=== PATIENT | male | born 1940 | race Caucasian/White ===

== ENCOUNTER 2021-05-01 14:38 | Inpatient (IN) ==
[2021-05-01] MEDS ORDERED: 0.9 % Sodium Chloride 1,000 ML IVC ONE (15:08)
[2021-05-01 15:51] LABS: Basophils % 0.2 %; Eosinophils % 0.4 %; Hematocrit 42.7 % (37.5-50.1); Hemoglobin 13.5 g/dL (12.9-16.9); Immature Granulocytes % 0.2 % (0-4); Lymphocytes # 0.8 K/mcL (0.6-4.6); Lymphocytes % 13.9 %; Mean Corpuscular HGB Conc 31.6 g/dL (31.6-35.5); Mean Corpuscular Hemoglobin 27.7 pg (28.0-33.3); Mean Corpuscular Volume 87.5 fL (83.0-100.0); Mean Platelet Volume 11.4 fL (9.4-12.4); Monocytes # 0.2 K/mcL (0.0-1.3); Neutrophils # 4.4 K/mcL (1.6-8.9); Platelet Count 174 K/mcL (140-400); Red Blood Count 4.88 M/mcL (4.19-5.50); Red Cell Distribution Width 16.4 % (11.5-14.5); Segmented Neutrophils % 81.3 %; White Blood Count 5.5 K/mcL (4.3-11.1)
[2021-05-01 16:10] LABS: Potassium 5.9 mEq/L (3.5-5.1)
[2021-05-01 16:58] LABS: Troponin I < 0.03 ng/mL (< 0.04)
[2021-05-01 17:02] LABS: Alanine Aminotransferase 44 Units/L (7-52); Albumin 4.1 g/dL (3.5-5.7); Albumin/Globulin Ratio 1.1 (1.1-2.2); Alkaline Phosphatase 78 Units/L (34-104); Aspartate Amino Transferase 60 Units/L (13-39); Bilirubin,Direct 0.2 mg/dL (0.0-0.2); Bilirubin,Indirect 0.3 mg/dL (0.0-1.0); Bilirubin,Total 0.5 mg/dL (0.3-1.0); Globulin 3.6 g/dL (2.4-3.5); Total Protein 7.7 g/dL (6.4-8.9)
[2021-05-01] MEDS ORDERED: Ondansetron ODT 4 MG TAB.RAPDIS SL PRN (19:54)
[2021-05-01] MEDS ORDERED: Nitroglycerin 0.4 MG TAB.SUBL SL PRN (20:53)
[2021-05-01] MEDS ORDERED: Azithromycin 250 MG TABLET PO ONE (21:28)
[2021-05-01] MEDS: 0.9 % Sodium Chloride 1,000 ML IVC SCH (22:09)
[2021-05-01] MEDS: cefTRIAXone 2,000 MG in 0.9 % Sodium Chloride Mini Bag 100 ML IVPB SCH (22:10)
[2021-05-01] MEDS: Nystatin POWDER 30 GM BOTTLE TP SCH (22:11)
[2021-05-01] MEDS: GlipiZIDE 5 MG TABLET PO SCH (22:12)
[2021-05-01] MEDS: dexAMETHasone 4 MG TABLET PO SCH (23:52)
[2021-05-02 05:01] LABS: Hematocrit 40.4 % (37.5-50.1); Hemoglobin 12.6 g/dL (12.9-16.9); Immature Granulocytes % 0.4 % (0-4); Lymphocytes # 0.4 K/mcL (0.6-4.6); Lymphocytes % 9.4 %; Mean Corpuscular HGB Conc 31.2 g/dL (31.6-35.5); Mean Corpuscular Hemoglobin 27.3 pg (28.0-33.3); Mean Corpuscular Volume 87.6 fL (83.0-100.0); Monocytes # 0.1 K/mcL (0.0-1.3); Monocytes % 2.5 %; Neutrophils # 3.9 K/mcL (1.6-8.9); Platelet Count 148 K/mcL (140-400); Red Blood Count 4.61 M/mcL (4.19-5.50); Red Cell Distribution Width 16.3 % (11.5-14.5); Segmented Neutrophils % 87.7 %; White Blood Count 4.5 K/mcL (4.3-11.1)
[2021-05-02 05:19] LABS: Alanine Aminotransferase 34 Units/L (7-52); Albumin 3.6 g/dL (3.5-5.7); Albumin/Globulin Ratio 1.2 (1.1-2.2); Alkaline Phosphatase 69 Units/L (34-104); Aspartate Amino Transferase 55 Units/L (13-39); BUN/Creatinine Ratio 17 (6-26); Bilirubin,Total 0.4 mg/dL (0.3-1.0); Blood Urea Nitrogen 23 mg/dL (8-23); Calcium 8.2 mg/dL (8.6-10.3); Carbon Dioxide 18 mEq/L (23-29); Chloride 106 mEq/L (98-107); Globulin 3.1 g/dL (2.4-3.5); Glucose 170 mg/dL (70-105); Osmolality,Calculated 288 (280-300); Potassium 5.1 mEq/L (3.5-5.1); Sodium 135 mEq/L (136-145); Total Protein 6.7 g/dL (6.4-8.9); eGFR For African Americans > 60 (> 60); eGFR For Non-African Americans 51 (> 60)
[2021-05-02] MEDS ORDERED: Remdesivir 200 MG in 0.9 % Sodium Chloride 100 ML IVPB ONE (07:47)
[2021-05-02] MEDS: 0.9 % Sodium Chloride 1,000 ML IVC SCH (08:08)
[2021-05-02] MEDS ORDERED: Aspirin Enteric Coated 81 MG Tablet PO SCH (09:00)
[2021-05-02] MEDS ORDERED: DilTIAZem CD (24hr) 240 MG CAP.ER.24H PO SCH (09:00)
[2021-05-02] MEDS ORDERED: Multivit/Ca/Min/Fe/FA 1 TAB TABLET PO SCH (09:00)
[2021-05-02] MEDS ORDERED: Metoprolol XL (24 HR) Succ 50 MG TAB.ER.24H PO SCH (09:00)
[2021-05-02] MEDS: GlipiZIDE 5 MG TABLET PO SCH ×2 (09:13→21:05)
[2021-05-02] MEDS: dexAMETHasone 4 MG TABLET PO SCH (09:14)
[2021-05-02] MEDS: Nystatin POWDER 30 GM BOTTLE TP SCH ×3 (09:15→21:07)
[2021-05-02] MEDS ORDERED: D5% in Water 1,000 ML IVC PRN (13:06)
[2021-05-02] MEDS ORDERED: Dextrose Gel 15 GM/37.5 ML TUBE PO PRN ×2 (13:06)
[2021-05-02] MEDS ORDERED: *HR* Dextrose 50 % in Water (Syg) 50 ML SYRINGE IVP PRN (13:06)
[2021-05-02] MEDS ORDERED: Insulin LISPRO 300 UNITS/3 ML VIAL SUBQ SCH ×2 (16:30→21:00)
[2021-05-02] MEDS ORDERED: *HR* Rivaroxaban 10 MG TABLET PO SCH (18:00)
[2021-05-02] MEDS ORDERED: Azithromycin 250 MG TABLET PO SCH (21:00)
[2021-05-02] MEDS: cefTRIAXone 2,000 MG in 0.9 % Sodium Chloride Mini Bag 100 ML IVPB SCH (21:06)
[2021-05-02 21:44] VITALS: PULSE 80
[2021-05-02] MEDS ORDERED: Isovue-370 500 ML BOTTLE IVP ONE (21:54)
[2021-05-02 22:30] LABS: Alanine Aminotransferase 48 Units/L (7-52); Albumin 3.7 g/dL (3.5-5.7); Albumin/Globulin Ratio 1.1 (1.1-2.2); Alkaline Phosphatase 71 Units/L (34-104); Aspartate Amino Transferase 62 Units/L (13-39); BUN/Creatinine Ratio 23 (6-26); Bilirubin,Total 0.3 mg/dL (0.3-1.0); Blood Urea Nitrogen 27 mg/dL (8-23); Calcium 8.4 mg/dL (8.6-10.3); Carbon Dioxide 17 mEq/L (23-29); Chloride 106 mEq/L (98-107); Globulin 3.4 g/dL (2.4-3.5); Glucose 207 mg/dL (70-105); Osmolality,Calculated 291 (280-300); Potassium 4.2 mEq/L (3.5-5.1); Sodium 135 mEq/L (136-145); Total Protein 7.1 g/dL (6.4-8.9); eGFR For African Americans > 60 (> 60); eGFR For Non-African Americans 60 (> 60)
[2021-05-02] MEDS ORDERED: Furosemide 40 MG/4 ML VIAL IVP ONE (22:42)
[2021-05-02 23:16] VITALS: BP 153/75; RESP 25; TEMP 97.6; O2SAT 90
[2021-05-02 23:38] LABS: Lactate Dehydrogenase 271 Units/L (140-271)
[2021-05-03] MEDS ORDERED: Remdesivir 100 MG in 0.9 % Sodium Chloride 100 ML IVPB SCH (08:00)
[2021-05-05 19:51] LABS: Ferritin 182 ng/mL (20-250)
== END 2021-05-03 00:27 | disposition short-term general hospital (02) | DRG 177 ==
LOC: INPGRE 14:38 → EMEROOGRE 14:38 → INPGRE 18:03
PROVIDERS: ADMIT Family Medicine; ATTEND Family Medicine